=== PATIENT | male | born 1980 | race Caucasian/White ===

== ENCOUNTER 2016-12-10 14:32 | Observation (INO) | payer OTHER ==
[~2016-12-10] VITALS: Ht 177.8 cm; Wt 89.2 kg
[~2016-12-10 14:32] MED LIST: TYLENOL WITH C1 EACH PO
[2016-12-10] MEDS ORDERED: TRIAMTERENE-HC1 EAC1 PO (15:06)
[2016-12-10] MEDS ORDERED: ALLEGRA60 MG PO (15:07)
[2016-12-10] MEDS ORDERED: NASACORT16.9 ML NOSE (15:07)
[2016-12-10] MEDS ORDERED: IMODIUM2 MG PO (15:08)
[2016-12-10] MEDS ORDERED: ADVIL200 MG PO (15:08)
--- NOTE | 2016-12-10 15:52 | NUR ---
PATIENT IS 36 YO MALE ADMITTED THIS AFTERNOON FROM THE CLINIC. HAS HAD N/V/D FOR A COUPLE OF DAYS W/ABDOMINAL PAIN AND FEVER. HE LIVES IN [place] W/. 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 IV IS STARTED IN LEFT FOREARM WITH 18 GA INTRACATH WITHOUT DIFFICULTY. PT MAR WELL. GOOD BLOOD RETURN NOTED AND IS SECURED W/TEGADERM AND TAPE. EDUCATION IS GIVEN DOCUMENTED. PATIENT AND DENY QUESTIONS. PNEUMATICS ARE ON BILAT CALVES. ALLERGY BRACELET IS ON. PATIENT DENIES NEEDS. CALL LIGHT IS WITHIN REACH. REPORT IS GIVEN TO BRIAN GO.
[2016-12-10 17:58] LABS: ANION GAP 13.2 (10.0-19.0); BLOOD UREA NITROGEN 11 mg/dL (6-24); CALCIUM 8.6 mg/dL (8.5-10.5); CHLORIDE 102 mMol/L (96-110); CO2 28 mMol/L (22-32); CREATININE 1.1 mg/dL (0.6-1.3); ESTIMATED GFR (MDRD EQUATION) > 60; POTASSIUM 3.2 mMol/L (3.7-5.1); SODIUM 140 mMol/L (135-145)
--- NOTE | 2016-12-10 19:17 | NUR ---
Significant Event: Alert and oriented X 3. Room Air. SBP 120. HR 90. Afebrile. Complains of sore throat. Throat is red and has white camargo on bilateral sides of throat. Ad Nat in room. Peripheral IV left posterior forearm, flushes well. Normal saline w/potassium infusing. CT w/contrast of abdomen and pelvis to be done yet today and results to be called to Dr. Eli. Keep NPO until after CT. Pleasant and cooperative with cares. Follow up:
[2016-12-11 05:28] LABS: BASOPHIL % 0.2 %; HEMATOCRIT 37.1 % (37.0-53.0); HEMOGLOBIN 13.3 g/dL (12.0-17.0); IMMATURE GRANULOCYTE # 0.1 K/uL (0.0-0.3); IMMATURE GRANULOCYTE % 0.6 %; LYMPHOCYTE # 1.1 K/uL (0.8-4.0); LYMPHOCYTE % 6.6 %; MCH 29.9 pg (27.0-34.0); MCHC 35.8 gm/dL (32.0-36.5); MCV 83.4 fl (83.0-98.0); MONOCYTE # 1.5 K/uL (0.0-1.0); MONOCYTE % 8.9 %; MPV 8.8 fl (9.4-12.4); NEUTROPHIL # (ANC) 13.6 K/uL (1.4-9.0); NEUTROPHIL % 83.7 %; NRBC % 0 /100WBC (0-0.00); PLATELET COUNT 147 K/uL (150-450); RBC 4.45 M/uL (4.00-6.00); RDW-CV 12.6 % (11.9-14.6)
[2016-12-11 05:31] LABS: WBC 16.3 K/uL (4.0-11.0)
[2016-12-11 05:44] LABS: ALBUMIN 3.1 gm/dL (3.5-5.0); ALK PHOS 73 IU/L (33-138); ALT 23 IU/L (12-78); ANION GAP 12.3 (10.0-19.0); AST 14 IU/L (10-40); BLOOD UREA NITROGEN 12 mg/dL (6-24); CHLORIDE 106 mMol/L (96-110); CO2 26 mMol/L (22-32); CREATININE 0.9 mg/dL (0.6-1.3); ESTIMATED GFR (MDRD EQUATION) > 60; POTASSIUM 3.3 mMol/L (3.7-5.1); SODIUM 141 mMol/L (135-145); TOTAL BILIRUBIN 2.7 mg/dL (0.0-1.5); TOTAL PROTEIN 6.5 g/dL (6.0-8.4)
[2016-12-11 14:11] LABS: ANION GAP 11.9 (10.0-19.0); BLOOD UREA NITROGEN 9 mg/dL (6-24); CALCIUM 7.8 mg/dL (8.5-10.5); CHLORIDE 109 mMol/L (96-110); CO2 25 mMol/L (22-32); ESTIMATED GFR (MDRD EQUATION) > 60; POTASSIUM 3.9 mMol/L (3.7-5.1); SODIUM 142 mMol/L (135-145)
[2016-12-11] MEDS ORDERED: CLARITIN10 MG PO (15:38)
[2016-12-11] MEDS ORDERED: TYLENOL EXTRA500 MG PO (15:39)
[2016-12-11] MEDS ORDERED: CLEOCIN150 MG PO (15:40)
[2016-12-11] MEDS ORDERED: DELTASONE20 MG PO (15:41)
--- NOTE | 2016-12-11 15:56 | NUR ---
Significant Event: pt max temp. 100 this am. tylenol given with relief. IVF given [id number]. BMP done this afternoon. PO K and pred given today. Pt feeling better and wants to go home. Dr rhea garner this pm. Follow up:[facility]
== END 2016-12-11 15:00 | disposition disaster alternative care site (69) ==
LOC: GPCU 14:32
PROVIDERS: ADMIT Family Medicine
DX: J02.0 Streptococcal pharyngitis (principal); E87.6 Hypokalemia; E86.0 Dehydration; R11.2 Nausea with vomiting, unspecified; Z79.1 Long term (current) use of non-steroidal anti-inflammatories (NSAID); Z79.51 Long term (current) use of inhaled steroids; Z79.899 Other long term (current) drug therapy
CPT/HCPCS: G0378; G0379; J3480; J7030; J7050; J7512; Q9967